=== PATIENT | male | born 1980 | race Caucasian/White ===

== ENCOUNTER 2016-05-24 11:50 | Observation (INO) | payer OTHER ==
--- NOTE | ~2016-05-24 | EKG ---
PATIENT: BEN AVILA UNIT #: [id number] Ventricular Rate: 74 BPM Atrial Rate: 74 BPM P-R Interval: 158 ms QRS Duration: 100 ms Q-T Interval: 396 ms QTC Calculation(Bezet): 439 ms P [place]: 9 degrees Calculated R [place]: 0 degrees Calculated T [place]: 3 degrees Diagnosis Line: Normal sinus rhythm Diagnosis Line: Minimal voltage criteria for LVH, may be normal Diagnosis Line: variant Diagnosis Line: Borderline ECG Diagnosis Line: No previous ECGs available Diagnosis Line: Confirmed by RHYS CUNNINGHAM MD ([id number]) on 05/25/2016 Diagnosis Line: 7:02:28 AM INTERPRETING MD: OCTAVIO CHAPARRO
--- NOTE | ~2016-05-24 | EKG ---
PATIENT: BEN AVILA UNIT #: [id number] Ventricular Rate: 66 BPM Atrial Rate: 66 BPM P-R Interval: 158 ms QRS Duration: 106 ms Q-T Interval: 414 ms QTC Calculation(Bezet): 434 ms P [place]: 26 degrees Calculated R [place]: 11 degrees Calculated T [place]: 8 degrees Diagnosis Line: Normal sinus rhythm Diagnosis Line: Normal ECG Diagnosis Line: When compared with ECG of 24-MAY-2016 15:56, Diagnosis Line: (unconfirmed) Diagnosis Line: Sinus rhythm has replaced Electronic ventricular Diagnosis Line: pacemaker Diagnosis Line: Confirmed by RYHS CUNNINGHAM MD ([id number]) on 05/25/2016 Diagnosis Line: 7:09:44 AM INTERPRETING MD: OCTAVIO CHAPARRO
--- NOTE | ~2016-05-24 | EKG ---
PATIENT: BEN AVILA UNIT #: [id number] Ventricular Rate: 71 BPM Atrial Rate: 71 BPM P-R Interval: 162 ms QRS Duration: 100 ms Q-T Interval: 396 ms QTC Calculation(Bezet): 430 ms P [place]: 17 degrees Calculated R [place]: -2 degrees Calculated T [place]: 0 degrees Diagnosis Line: Sinus rhythm Diagnosis Line: Minimal voltage criteria for LVH, may be normal Diagnosis Line: variant Diagnosis Line: Abnormal ECG Diagnosis Line: When compared with ECG of 24-MAY-2016 11:44, Diagnosis Line: (unconfirmed) Diagnosis Line: No significant change was found Diagnosis Line: Confirmed by RHYS CUNNINGHAM MD ([id number]) on 05/25/2016 Diagnosis Line: 7:05:17 AM INTERPRETING MD: OCTAVIO CHAPARRO
--- NOTE | ~2016-05-24 | US85 ---
[facility] A Service of [facility] RADIOLOGY TEXT RESULTS PATIENT: BEN AVILA LOCATION: [facility] : [birth year] UNIT #: [id number] AGE: [address]: Krzysztof Crespo MD SEX: M ORDER DR: [id number] [facility] [address] [facility] [place], [place] [address] [id number] I MR#: [id number] Acc #: [id number] NAME: BEN AVILA. : 1980 SEX: M STUDY DATE/TIME: 05/24/2016 12:28 UNIT: [facility] ROOM: [facility] STUDY DESCRIPTION: US LE Veins Unilat or Ltd Stdy Attending Physician: Krzysztof Crespo M.D. Ordering Physician: Luci Lacy M.D. MEDICAL IMAGING REPORT This report is preliminary unless electronic signature is present EXAM Venous Doppler ultrasound, left leg, 05/24/2016 HISTORY 35-year-old male in the ED complaining of 4-day history of left leg pain and swelling. TECHNIQUE Venous ultrasound examination of the left lower extremity was performed using grayscale, spectral Doppler and color flow Doppler imaging. FINDINGS The examination is negative. There is no evidence of left lower extremity deep venous thrombus from the groin to the lower calf. Visualized greater saphenous vein is also patent. IMPRESSION Negative examination. No evidence of left lower extremity deep venous thrombosis. Dictated by... Edvin Acevedo M.D. THIS IS AN ELECTRONICALLY VERIFIED REPORT Edvin Acevedo M.D. at 05/25/2016 8:40 AM DEREKW/caryn TD: 05/24/2016 19:33 JOB #: [id number] [facility] A Service [facility] RADIOLOGY TEXT RESULTS PATIENT: BEN AVILA LOCATION: [facility] : 81 UNIT #: [id number] AGE: [address]: Krzysztof Crespo MD SEX: M ORDER DR: MEDICAL IMAGING REPORT COPY
--- NOTE | ~2016-05-24 | CR72 ---
[facility] A Service of [facility] RADIOLOGY TEXT RESULTS PATIENT: BEN AVILA LOCATION: [place] [address] : 82 UNIT #: [id number] AGE: [address]: Krzysztof Crespo MD SEX: M ORDER DR: [id number] [facility] [address] [facility]. [place], [place] [address] [id number] I MR#: [id number] Acc #: [id number] NAME: BEN AVILA. : 1980 SEX: M STUDY DATE/TIME: 05/24/2016 11:48 UNIT: [facility] ROOM: [facility] STUDY DESCRIPTION: CR Chest Single View Portable Attending Physician: Krzysztof Crespo M.D. Ordering Physician: Luci Lacy M.D. MEDICAL IMAGING REPORT This report is preliminary unless electronic signature is present EXAM Chest x-ray 05/24/2016. HISTORY 35-year-old male in the ED complaining of chest pain and diaphoresis since last evening. Leg swelling. TECHNIQUE AP portable upright chest x-ray. FINDINGS The heart appears mildly enlarged, exaggerated by AP portable technique and patient body habitus. Pulmonary vascularity is normal. The lungs are clear. No visible pulmonary filtrate or pleural effusion. IMPRESSION Mild cardiomegaly. No active disease. Dictated by... Edvin Acevedo M.D. THIS IS AN ELECTRONICALLY VERIFIED REPORT Edvin Acevedo M.D. at 05/25/2016 8:40 AM JESSE/caryn TD: 05/24/2016 19:03 JOB #: [id number] MEDICAL IMAGING REPORT COPY
--- NOTE | ~2016-05-24 | ST ---
Unit #: [id number] #: [id number] Patient: BEN AVILA [id number] [address] [address] [id number] I MR#: [id number] NAME: BEN AVILA. : 1980 SEX: M STUDY DATE/TIME: 05/25/2016 UNIT: [facility] [place] [facility] ROOM: 574 STUDY DESCRIPTION: Attending Physician: Krzysztof Crespo M.D. CARDIOLOGY REPORT EXAM Lexiscan Cardiolite REASON FOR TEST Chest pain. DESCRIPTION OF PROCEDURE AND FINDINGS Resting heart rate of 67 beats per minute with resting EKG that was normal sinus. Resting blood pressure was elevated at 143/100. A total of 0.4 mg of Lexiscan was injected per protocol followed by Cardiolite. Patient's symptoms included some mild shortness of breath which resolved within 4 minutes of testing. The test was stopped due to protocol completion. This was a negative test with no ST segment elevation or depression that was obvious. Symptoms included just mild shortness of breath that resolved in recovery. Peak heart rate of 102 beats per minute and blood pressure of 148/88. There were no arrhythmias noted. Please correlate with Cardiolite imaging. Dictated by... Yadira Hernandez APRN for Cam Boudreaux TD: 05/25/2016 17:40 JOB #: [id number] CARDIOLOGY REPORT X CARDIOLOGY REPORT
--- NOTE | ~2016-05-24 | CO ---
Unit #: [id number] #: [id number] Patient: BEN AVILA [id number] [address] [place], [place] [address] [id number] I MR#: [id number] NAME: BEN AVILA. ROOM: 574 Age: 35 Sex: M Admission Date: 05/24/2016 : 1980 Attending Physician: Krzysztof Crespo M.D. CONSULTATION REPORT HISTORY OF PRESENT ILLNESS Mr. Avila is a 35-year-old male, who reports pain and swelling in his left ankle that began on . He reports the pain was initially posterior in his ankle near his insertion of his Achilles tendon. He reports that the pain continued until Wednesday when he experienced some chest pain and afterwards, he was completely unable to bear weight on the left lower extremity. He was seen and evaluated in the emergency department on Wednesday morning and admitted for his chest pain workup. He continued to have trouble weightbearing on his left ankle and that is why Orthopedics was consulted. Mr. Avila does currently complain of pain in his left ankle particularly along the lateral aspect of his ankle. He denies any history of trauma or injury to the ankle. 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 He has never had pain like this in his left ankle before. He does report a history of gout in the right foot as well as pain and swelling intermittently in the right foot previously, but never in the left. He denies any fevers or chills recently. He denies shortness of breath right now or any chest pain right now. He denies any issues with his right ankle at this time. He is complaining of trouble weightbearing on his left ankle, though this has improved since admission yesterday. PHYSICAL EXAMINATION The left ankle demonstrates moderate swelling and erythema over the lateral midfoot. He is able to actively dorsiflex and plantar flex. He is able to extend his EHL. PT pulse was palpable. There is tenderness to palpation inferior to lateral malleolus as well as over the area of erythema over the midfoot laterally. There were no other skin lesions visible. He denies numbness or tingling in his foot. He is intact to light touch throughout his left foot and left lower extremity. He is tender to palpation along the medial aspect of his left calf proximally. There is no pain with passive movement of the left ankle. He is able to bear weight on his left ankle though with considerable pain. IMPRESSION A 35-year-old male with likely gout of the left ankle. Lower on the differential is a gonococcal arthritis or some seronegative spondyloarthropathy. PLAN Mr. Avila may continue to weightbear as tolerated on the left lower extremity. Using assisted devices as necessary. The left ankle joint was tapped and we will sent for aerobic C and S, anaerobic C and S, Gram stain, crystal analysis as was total cell count. We recommend Unit #: [id number] #: [id number] Patient: BEN AVILA anti-inflammatories for pain relief. Mr. Avila may follow up in clinic in about a week with Dr. Mcmillan. He should call to make that appointment. Dictated by.Diane Mcmillan M.D. OLI/magdaleno TD: 05/26/2016 02:46 JOB #: [id number] CONSULTATION REPORT X Alejandra Mcmillan MD X CONSULTATION REPORT
--- NOTE | ~2016-05-24 | TH ---
Unit #: [id number] #: [id number] Patient: BEN AVILA [id number] [address] [address] [id number] I MR#: [id number] NAME: BEN AVILA. : 1980 SEX: M STUDY DATE/TIME: 05/25/2016 UNIT: [facility] ROOM: 574 STUDY DESCRIPTION: Attending Physician: Krzysztof Crespo M.D. Primary Care Physician: No Primary Care Physician CARDIOLOGY REPORT EXAM Lexiscan Cardiolite stress test, nuclear portion. PROCEDURE Using technetium 99m labeled Cardiolite, rest and stress SPECT images were obtained. Multiple SPECT images were obtained in various views including horizontal and vertical long axis and short axis views of the left ventricle. Images were obtained by gated SPECT method. The patient was administered 12 mCi of Cardiolite at rest. The patient was administered 33.9 mCi of Cardiolite after Lexiscan infusion was completed. On the stress images, there was normal perfusion noted. The rest images showed normal perfusion. Comparing rest and stress images, there is no stress-induced ischemia noted. The left ventricular ejection fraction is calculated to be 48%. There is no focal wall motion abnormality seen. The left ventricular cavity is moderately dilated both at rest and post stress. CONCLUSION 1. No obvious stress-induced ischemia noted. 2. The left ventricular ejection fraction is calculated to be 48%. 3. There is no focal wall motion abnormality seen. 4. The left ventricular cavity is moderately dilated both at rest and post stress. 5. Technically extremely limited study due to patient's body habitus. Clinical correlation is requested. Dictated by... Cam Summers TD: 05/25/2016 16:06 JOB #: [id number] Unit #: [id number] #: [id number] Patient: BEN AVILA CARDIOLOGY REPORT X Krystyna Nash MD <ELECTRONICALLY SIGNED> 10/17/16 1428 CARDIOLOGY REPORT
--- NOTE | ~2016-05-24 | HP ---
Unit #: [id number] #: [id number] Patient: BEN AVILA [id number] [address] [place], [place] [address] [id number] I MR#: [id number] NAME: BEN AVILA. ROOM: 04238 Age: 35 Sex: M Admission Date: 05/24/2016 : 1980 Attending Physician: Krzysztof Crespo M.D. HISTORY AND PHYSICAL REASON FOR ADMISSION Chest pain and shortness of breath. HISTORY OF PRESENT ILLNESS Mr. 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 He had considered himself in good health until about a year ago when he started noticing right leg edema later towards the evening after being up on his feet most of the day which would resolve spontaneously the next morning after a good night's rest. Over the last five or six days, the patient noted that he had similar problems with the left leg with worsening left ankle edema and pain in the area of the left Achilles tendon to an extent that he could not bear any weight on the left foot. The pain would radiate to the outer aspect of the left leg. It was made worse by walking from the bedroom to the bathroom, and he took ibuprofen for the same. Ibuprofen provided only transient relief, and for the last three days the pain had been persistent and unremitting. There was no associated redness in the calf muscle. There was no fever, chills, or rigors, and the patient denied any history of local trauma. Most of the day yesterday the patient had this left calf and left ankle pain despite taking ibuprofen, and last evening as he was lying in bed, he started complaining of tightness and pressure-like sensation on both sides of the chest described as a squeezing discomfort without any radiation to the neck, jaw, or back, and there was no radiation to the elbows. There was no associated diaphoresis, palpitations, dizziness, or lightheadedness. This chest tightness lasted for about an hour at a time but was spontaneously relieved, and he went to sleep. This morning when he awakened he could not bear weight on the left leg and decided to come to the emergency room. He denies any symptoms suggestive of leg claudications in the past. He denies any pleuritic pain or retrosternal chest discomfort and denies any history of syncope, near syncope, transient ischemic attacks, or strokes. REVIEW OF SYSTEMS The patient denies any history of thyroid abnormalities. He has not lost or gained a significant amount of weight in the last six months. There is no change in bowel habits. PAST MEDICAL HISTORY Negative for hypertension, diabetes mellitus, hyperlipidemia, heart murmur, strokes, or transient ischemic attacks. FAMILY HISTORY Unit #: [id number] #: [id number] Patient: BEN AVILA His father at the age of 72 from an SD. He was a nonsmoker. His one sister at age 54 has coronary artery disease. She is a smoker. PAST SURGICAL HISTORY Noncontributory. PRESENT MEDICATIONS None. PHYSICAL EXAMINATION VITAL SIGNS: Blood pressure at time of admission was 160/113 mm. GENERAL: Examination reveals an obese, 6 feet 3 inches tall male in no acute cardiorespiratory distress. NECK: Both carotids have a normal upstroke without any bruits. EXTREMITIES: No ankle edema. There is 1+ leg edema bilaterally extending up to the mid calf area. There is tenderness and pain on local pressure just above the left Achilles tendon. No venous cords are palpable. CHEST: Normal to palpation, percussion, and auscultation. CARDIAC: Apical impulses normal. Both heart sounds are normal. No rubs or clicks are audible. There is no murmur. No costochondral tenderness is noted. ABDOMEN: Soft and nontender anterior abdominal wall. No masses or organomegaly. RECTAL: Not done. CENTRAL NERVOUS SYSTEM: Within normal limits. DIAGNOSTIC STUDIES LABORATORY: Hemoglobin is 13.1, hematocrit 39, and 6400 white cells with normal differential. Troponin level is 0.05. INR 1. Creatinine 0.8, GFR greater than 60, and potassium 3.8. The rest of the chemistry is normal. BNP is mildly elevated to 181. Cardiac enzymes would be repeated. Thyroid function studies are not available. IMAGING: Chest x-ray shows normal size heart and normal lung clement. CARDIOLOGY: EKG shows normal sinus rhythm and is within normal limits. DIAGNOSES 1. Uncontrolled hypertension newly diagnosed. 2. Chest pain may be secondary to insipient interstitial pulmonary edema. 3. Lower extremity pain and swelling, cannot rule out deep venous thrombosis. 4. Cannot rule out underlying coronary artery disease. 5. Obesity. PLAN Being is being started on 25 mg of metoprolol b.i.d., 40 mg of Lasix daily, lisinopril 20 mg daily, potassium supplement, and aspirin. Lovenox is being given at full anticoagulant dose until the results of lower extremity venous Doppler is available. Patient has risk factors of hypertension and family history of premature onset of coronary artery disease as the risk factors for ischemic heart disease. A lipid profile will be done tomorrow. An echocardiogram and Doppler study have been ordered, and the patient may need an exercise Cardiolite scan to rule out significant ischemic heart disease. Dictated by Krzysztof Crespo M.D. Unit #: [id number] #: [id number] Patient: BEN AVILA LAUREN/junie TD: 05/24/2016 16:39 JOB #: [id number] HISTORY AND PHYSICAL X Krzyszotf Crespo MD X HISTORY AND PHYSICAL
[2016-05-24 12:27] LABS: BASOPHIL% 0.8 % (0-2.5); EOSINOPHIL# 0.1 X10e3 (0-0.7); EOSINOPHIL% 1.5 % (0.0-7.0); HEMOGLOBIN 13.1 gm/dL (13.0-16.0); LYMPHOCYTE# 1.3 X10e3 (1.0-3.5); LYMPHOCYTE% 20.9 % (17.0-45.0); MEAN CELL VOLUME 96.5 FL (83-96); MEAN CORPUSCULAR HEMOGLOBIN 32.3 PG (28-34); MEAN CORPUSCULAR HGB CONC 33.5 g/dL (30-36); MEAN PLATELET VOLUME 9.2 FL (6.5-11.5); MONOCYTE# 0.7 X10e3 (0-1.0); MONOCYTE% 11.5 % (3.0-12.0); NEUTROPHIL# 4.2 X10e3 (1.5-7.1); NEUTROPHIL% 65.3 % (40-75); PLATELET COUNT 192 X10e3 (140-420); RED BLOOD COUNT 4.04 X10e (3.90-5.60); RED CELL DISTRIBUTION WIDTH 14.7 % (11.0-15.5); WHITE BLOOD COUNT 6.4 X10e3 (4.0-10.5)
[2016-05-24 12:32] LABS: DIFF IND NO
[2016-05-24 12:40] LABS: PARTIAL THROMBOPLASTIN TIME 23.8 SECONDS (23.5-31.3); PROTHROMBIN TIME (PATIENT) 10.3 SECONDS (9.6-11.5)
[2016-05-24 13:01] LABS: POC - TROPONIN <0.05 ng/mL (<=0.05)
[2016-05-24 13:05] LABS: ALBUMIN SERUM 3.7 g/dL (3.5-5.0); ALKALINE PHOSPHATASE 84 U/L (32-92); ALT (SGPT) 35 U/L (10-40); AST (SGOT) 27 U/L (10-42); BILIRUBIN, DIRECT 0.2 mg/dL (0.0-0.2); BILIRUBIN,INDIRECT 0.8 mg/dL (0.0-0.9); BLOOD UREA NITROGEN 11 mg/dL (9-23); BUN/CREATININE RATIO 13.75; CALCIUM SERUM 9.5 mg/dL (8.4-10.2); CARBON DIOXIDE 25 mmol/L (22-31); CHLORIDE 105 mmol/L (100-111); CREATININE SERUM 0.8 mg/dL (0.6-1.4); GLOM FILT RATE Estimated ABOVE60 mL/min (>60); GLUCOSE FASTING 86 mg/dL (70-110); POTASSIUM 3.8 mmol/L (3.5-5.1); PROTEIN TOTAL SERUM 7.4 g/dL (6.0-8.3); SODIUM 137 mmol/L (135-145)
[2016-05-24 14:00] LABS: POC - CKMB 1.6 ng/mL (0.0-7.9); POC - TROPONIN <0.05 ng/mL (<=0.05)
[2016-05-24] MEDS ORDERED: NO MEDICATIONS (14:15)
[2016-05-24 16:36] LABS: THYROID STIMULATING HORMONE 1.4 uIU/ml (0.34-5.60)
[2016-05-24 16:43] LABS: FREE THYROXIN (T4) 0.7 ng/dL (0.58-1.64)
[2016-05-24 20:39] LABS: %MB 2.3 % (0.0-4.0); MB 1.7 ng/ml
[2016-05-25 05:08] LABS: %MB 1.7 % (0.0-4.0); MB 1.1 ng/ml
[2016-05-25] MEDS ORDERED: MOTRIN400 MG PO (16:52)
[2016-05-25] MEDS ORDERED: POTASSIUM CHLO20 ME1 PO (16:52)
[2016-05-25] MEDS ORDERED: LISINOPRIL20 MG PO (16:56)
[2016-05-25] MEDS ORDERED: METOPROLOL TAR25 MG PO (16:56)
[2016-05-25] MEDS ORDERED: LASIX20 MG PO (16:56)
[2016-05-25] MEDS ORDERED: ASPIRIN81 M2 PO (16:57)
[2016-05-25 18:41] LABS: BF CRYSTAL EXAM NO CRYSTALS SEEN; BODY FLUID SOURCE SYNOVIAL
[2016-05-25 18:42] LABS: BODY FLUID APPEARANCE BLOODY
== END 2016-05-25 19:11 | disposition home or self-care (01) ==
LOC: CED 11:50 → CEDOF 13:40 → C5C 17:31
PROVIDERS: Emergency Medicine; Internal Medicine Cardiovascular Disease; Orthopaedic Surgery
DX: I10 Essential (primary) hypertension (principal); R07.89 Other chest pain; M79.606 Pain in leg, unspecified; M79.89 Other specified soft tissue disorders; E66.9 Obesity, unspecified; Z82.49 Family history of ischemic heart disease and other diseases of the circulatory system; F17.200 Nicotine dependence, unspecified, uncomplicated
CPT/HCPCS: 36415; 71010; 78452; 80048; 80061; 80076; 82550; 82553; 83880; 84439; 84443; 84484; 85025; 85610; 85730; 87070; 87075; 87205; 89051; 89060; 93005; 93017; 93306; 93971; 96372; 99285; A9500; G0378; J1650; J2785

== ENCOUNTER 2016-05-26 21:17 | Emergency (ER) | payer OTHER ==
[~2016-05-26 21:17] MED LIST: ASPIRIN81 M2 PO; LASIX20 MG PO; LISINOPRIL20 MG PO; METOPROLOL TAR25 MG PO; MOTRIN400 MG PO; NO MEDICATIONS; POTASSIUM CHLO20 ME1 PO
== END 2016-05-26 21:20 | disposition home or self-care (01) ==
LOC: CFTX 21:17
DX: T78.3XXA Angioneurotic edema, initial encounter (principal); T78.40XA Allergy, unspecified, initial encounter; J45.909 Unspecified asthma, uncomplicated
CPT/HCPCS: 99282

== ENCOUNTER → 2016-06-02 | Outpatient (CLI) | payer OTHER | END | disposition home or self-care (01) | LOC: CLAB 11:20 | DX: M10.9 Gout, unspecified (principal) | CPT/HCPCS: 36415; 84550 ==